=== PATIENT | male | born 1955 | race Caucasian/White ===

== ENCOUNTER 2023-10-15 06:00 | Day surgery (SDC) | payer MEDICARE, BC, SELFPAY ==
[2023-10-15] VITALS (12 sets, daily range): BP systolic 134–156; BP diastolic 74–107; PULSE 64–84; RESP 12–16; TEMP 36.1–36.4; O2SAT 94–98; BMI 35.7
[2023-10-15] MEDS: LACTATED RINGERS 1000 ML 1,000 ML 100 ML IV ×2 (06:44→08:19)
[2023-10-15] MEDS: SODIUM CHLORIDE 0.9 % (FLUSH) 10 ML SYRINGE IVF (06:44)
[2023-10-15] MEDS: CEFAZOLIN 2 GM INJ IVP (07:20)
--- NOTE | 2023-10-15 07:52 | PM.ORPRC ---
Procedure Note Date of procedure: 10/15/23 Procedure: PREOPERATIVE DIAGNOSIS: Right upper extremity septic olecranon bursitis POSTOPERATIVE DIAGNOSIS: Right upper extremity septic olecranon bursitis NAME OF OPERATION: Irrigation and debridement of the olecranon bursa and enthesophyte SURGEON: Bryan Hay MD RESIDENTIAL TEAM LEADER: aVnia Bonner PA-C ANESTHESIA: General ESTIMATED BLOOD LOSS: 5 mL COMPLICATIONS: None SPECIMENS: Aerobic and anaerobic culture, Gram stain, pathologic specimen labeled as right olecranon bursa, rule out gout DRAINS: None PREOPERATIVE ANTIBIOTICS: Ancef 2 g INDICATIONS: The patient is a 68-year-old who has septic olecranon bursitis. Irrigation and debridement was recommended. The risks, benefits and expected outcomes were discussed in detail. These included but were not limited to: Infection, bleeding, injury to blood vessel or nerve, venous thromboembolism. All questions were answered to their satisfaction. PROCEDURE: The patient was placed supine on the operating room table. General anesthesia was administered. The right upper extremity was prepped and draped in the usual sterile fashion. The limb was exsanguinated with the Fei bandage. The pneumatic tourniquet was inflated to 250 mmHg. A longitudinal incision was made over the olecranon, it was curved radially over the point of the olecranon. Subcutaneous dissection taken sharply to the bursa which was subperiosteally elevated off of the olecranon. A small olecranon enthesophyte was debrided with the rongeur. The bursa was entered. Clear fluid and white crystalline material were encountered. The fluid was sent for Gram stain and routine cultures. The bursa was then sharply debrided off of skin and sent labeled as right olecranon bursa, rule out gout. The wound was irrigated with normal saline. Skin was closed with a 2-0 Vicryl deep and a 3-0 Monocryl in a subcuticular fashion. Glue was used to seal the skin. The tourniquet was released. A dry dressing was applied, and a long-arm splint were applied. Sponge and needle counts were correct x 2. The patient tolerated the procedure well. There were no apparent complications. They were carefully transferred to the hospital bed and taken to the postanesthesia care unit in satisfactory condition. PLAN: The patient will be discharged to home. They will work on ice and elevation. They will follow up in the office in 1 week for a wound check in preparation for active range of motion.
--- NOTE | 2023-10-15 08:38 | W.ANESCHARGE ---
Anesthesia Charges Start Date/Time Anesthesia Start Date: 10/15/23 Anesthesia Start Time: 07:15 Stop Date/Time Anesthesia Stop Date: 10/15/23 Anesthesia Stop Time: 08:35
[2023-10-15] MEDS: LACTATED RINGERS 1000 ML 1,000 ML 50 ML IV ×2 (08:44→10:26)
== END 2023-10-15 10:23 | disposition home or self-care (01) ==
PROVIDERS: PCP Family Medicine; Visit Provider Orthopaedic Surgery
PROC: (CPT 24105; principal; 2023-10-15 07:15)
DX: M71.121 Other infective bursitis, right elbow (principal)
CPT/HCPCS: 24105; 01710; 82962; 87070; 87075; 87186; 87205; 88304; A4580; J0330; J0690; J1100; J2371; J2405; J2704; J2710; J3010; J3490; J7120